=== PATIENT | female | born 1985 | race Caucasian/White ===

== ENCOUNTER 2024-07-03 16:34 | Emergency (ER) | payer OTHER ==
[~2024-07-03] VITALS: Ht 170.2 cm; Wt 70.0 kg
[2024-07-03 16:40] VITALS: O2SAT 98
[2024-07-03] MEDS ORDERED: ADENOSINE 3 MG/ML 2ML VIAL IV ONE (17:00)
[2024-07-03] MEDS: ADENOSINE 3 MG/ML 2ML VIAL IV ONE (17:23)
[2024-07-03 17:24] LABS: CHLORIDE 107 mEq/L (98-107); POTASSIUM 3.6 mEq/L (3.5-5.1); SODIUM 140 mEq/L (136-145)
[2024-07-03 17:25] LABS: CALCIUM 8.7 mg/dL (8.7-10.4); CARBON DIOXIDE 24 mEq/L (21-32)
[2024-07-03 17:30] LABS: CREATININE 0.8 mg/dL (0.6-1.0); GLUCOSE 175 mg/dL (70-105); UREA NITROGEN BLOOD 11 mg/dL (9-23)
[2024-07-03 17:31] LABS: TROPONIN I HIGH SENSITIVITY 6 ng/L (3.0-34)
[2024-07-03 17:32] LABS: BASOPHILS % 0.4 % (0.0-2.0); DIFFERENTIAL COMMENT 0; EOSINOPHILS % 3.6 % (0.0-5.0); HEMATOCRIT. 27.8 % (36.0-48.0); HEMOGLOBIN. 8.9 g/dL (12.0-16.0); LYMPHOCYTES % 27.2 % (20.0-50.0); MEAN CORPUSCULAR HEMOGLOBIN 25.3 pg (28.0-32.0); MEAN CORPUSCULAR HGB CONC 31.9 g/dL (31.0-37.0); MEAN CORPUSCULAR VOLUME 79.4 fL (81.0-99.0); MEAN PLATELET VOLUME 8.7 fl (7.4-10.4); MONOCYTES % 7.2 % (2.0-8.0); NEUTROPHILS % 61.6 % (40.0-76.0); PLATELET 227 x1000/uL (130-400); RED CELL DISTRIBUTION WIDTH 16.2 % (11.6-14.6); WHITE BLOOD COUNT 7.3 x1000/uL (4.5-11.0)
[2024-07-03 19:57] VITALS: BP 112/69; PULSE 84; RESP 12; TEMP 36.7; O2SAT 100
== END 2024-07-03 20:09 | disposition home or self-care (01) ==
LOC: ER 16:34
DX: I47.10 Supraventricular tachycardia, unspecified (principal); Z79.899 Other long term (current) drug therapy
CPT/HCPCS: 99291; 96374; 80048; 83735; 85025; 84484; 36415; 93005; J0153

== ENCOUNTER 2025-01-06 22:44 | Emergency (ER) | payer OTHER ==
[~2025-01-06] VITALS: Ht 162.6 cm; Wt 89.0 kg
[~2025-01-06 22:44] MED LIST: FERR325T6 MT
[2025-01-06 22:47] VITALS: O2SAT 100
[2025-01-06] MEDS: ADENOSINE 3 MG/ML 2ML VIAL IV ONE ×2 (23:00→23:07)
[2025-01-06 23:09] LABS: BASOPHILS % 1.1 % (0.0-2.0); EOSINOPHILS % 3.8 % (0.0-5.0); HEMATOCRIT. 25.6 % (36.0-48.0); HEMOGLOBIN. 8.3 g/dL (12.0-16.0); LYMPHOCYTES % 41.7 % (20.0-50.0); MEAN PLATELET VOLUME 8.5 fl (7.4-10.4); MONOCYTES % 7.8 % (2.0-8.0); NEUTROPHILS % 45.6 % (40.0-76.0); PLATELET 244 x1000/uL (130-400); RED BLOOD CELL COUNT 3.24 mill/uL (4.2-5.4); RED CELL DISTRIBUTION WIDTH 18.1 % (11.6-14.6)
[2025-01-06 23:19] LABS: HCG SCREEN NEGATIVE
[2025-01-06] MEDS: SODIUM CHLORIDE 0.9% 1,000 ML IV ONE (23:21)
[2025-01-06 23:25] LABS: CREATININE 0.7 mg/dL (0.6-1.0); UREA NITROGEN BLOOD 12 mg/dL (9-23)
[2025-01-06 23:26] LABS: ETHANOL BLOOD < 10 mg/dL (<10); TROPONIN I HIGH SENSITIVITY 4 ng/L (3.0-34)
[2025-01-06 23:27] LABS: ASPARTATE AMINOTRANSFERASE 22 IU/L (<34); BILIRUBIN DIRECT < 0.1 mg/dL (<=3.0)
[2025-01-06 23:28] LABS: BILIRUBIN TOTAL 0.3 mg/dL (0.1-1.0); PROTEIN TOTAL 6.9 g/dL (6.0-8.3)
[2025-01-06 23:41] LABS: CLARITY URINE CLEAR (CLEAR); COLOR URINE YELLOW (YELLOW); GLUCOSE URINE NEGATIVE (NEGATIVE); KETONES URINE NEGATIVE (NEGATIVE); LEUKOCYTE ESTERASE URINE 2+ (NEGATIVE); NITRITE URINE NEGATIVE (NEGATIVE); OCCULT BLOOD URINE NEGATIVE (NEGATIVE); PH URINE 6.5 (4.5-8.0); PROTEIN URINE NEGATIVE (NEGATIVE); SPECIFIC GRAVITY URINE 1.005 (1.005-1.030); UROBILINOGEN URINE 0.2 E.U./dL (0.2-1.0)
[2025-01-07 00:05] LABS: *AMPHETAMINES SCREEN URINE NEGATIVE (NEGATIVE); *BARBITURATES SCREEN URINE NEGATIVE (NEGATIVE); *BENZODIAZEPINES SCREEN URINE NEGATIVE (NEGATIVE); *COCAINE SCREEN URINE NEGATIVE (NEGATIVE); CANNABINOID URINE SCREEN NEGATIVE (NEGATIVE); ECSTASY MDMA SCREEN URINE NEGATIVE (NEGATIVE); METHADONE URINE SCREEN NEGATIVE (NEGATIVE); OPIATES URINE SCREEN NEGATIVE (NEGATIVE); PHENCYCLIDINE URINE SCREEN NEGATIVE (NEGATIVE)
[2025-01-07 02:46] LABS: TROPONIN I HIGH SENSITIVITY 15 ng/L (3.0-34)
[2025-01-07 03:07] LABS: SQUAMOUS EPITHELIAL CELL URINE FEW /lpf (RARE/1+)
[2025-01-07 03:08] LABS: RBC URINE 0-2 /hpf (0-2); WBC URINE 0-2 /hpf (0-2)
[2025-01-07 03:09] LABS: BACTERIA URINE TRACE
[2025-01-07 03:48] VITALS: BP 138/63; PULSE 76; RESP 13; TEMP 36.9; O2SAT 100
== END 2025-01-07 03:53 | disposition home or self-care (01) ==
LOC: ER 22:44
DX: I47.10 Supraventricular tachycardia, unspecified (principal); D64.9 Anemia, unspecified; Z86.79 Personal history of other diseases of the circulatory system
CPT/HCPCS: 80076; 80305; 80048; 81003; 80320; 84703; 83735; 85025; 84484 ×2; 36415 ×2; 71045; 93005; 96361; 96374; 99291; J0153; J7030; G0480

== ENCOUNTER 2025-04-03 09:33 | Inpatient (IN) | payer OTHER ==
[~2025-04-03] VITALS: Ht 170.2 cm; Wt 89.6 kg
[2025-04-03 09:38] VITALS: O2SAT 99
[2025-04-03] MEDS: ONDANSETRON HCL 4MG/2ML INJ IV ONE (10:11)
[2025-04-03] MEDS: LACTATED RINGERS 1,000 ML IV SCH (10:12)
[2025-04-03] MEDS: ACETAMINOPHEN 325MG TABLET PO ONE (10:13)
[2025-04-03 10:30] LABS: BASOPHILS % 0.4 % (0.0-2.0); EOSINOPHILS % 3.0 % (0.0-5.0); HEMATOCRIT. 31.3 % (36.0-48.0); HEMOGLOBIN. 9.4 g/dL (12.0-16.0); LYMPHOCYTES % 27.5 % (20.0-50.0); MEAN PLATELET VOLUME 9.0 fl (7.4-10.4); MONOCYTES % 3.7 % (2.0-8.0); NEUTROPHILS % 65.4 % (40.0-76.0); PLATELET 261 x1000/uL (130-400); RED BLOOD CELL COUNT 3.74 mill/uL (4.2-5.4); RED CELL DISTRIBUTION WIDTH 18.2 % (11.6-14.6)
[2025-04-03] MEDS: ADENOSINE 3 MG/ML 2ML VIAL IV ONE (10:33)
[2025-04-03 10:42] LABS: HCG SCREEN NEGATIVE
[2025-04-03 10:44] LABS: CREATININE 0.8 mg/dL (0.6-1.0)
[2025-04-03 10:45] LABS: PROTEIN TOTAL 7.1 g/dL (6.0-8.3); UREA NITROGEN BLOOD 7 mg/dL (9-23)
[2025-04-03 10:46] LABS: ASPARTATE AMINOTRANSFERASE 53 IU/L (<34); TROPONIN I HIGH SENSITIVITY 6 ng/L (3.0-34)
[2025-04-03 10:47] LABS: BILIRUBIN DIRECT 0.1 mg/dL (<=3.0); BILIRUBIN TOTAL 0.4 mg/dL (0.1-1.0)
[2025-04-03 14:20] LABS: TROPONIN I HIGH SENSITIVITY 117 ng/L (3.0-34)
[2025-04-03] MEDS: ASPIRIN 325MG TABLET PO ONE (16:32)
[2025-04-03] MEDS: ENOXAPARIN 80MG/0.8ML SYR SUBCUT ONE (16:33)
[2025-04-03 20:00] VITALS: BP 145/51; PULSE 82; RESP 16; TEMP 36.8; O2SAT 100
[2025-04-03] MEDS ORDERED: DEXTROSE 50% WATER 50ML SYRINGE IV PRN (20:30)
[2025-04-03] MEDS: INSULIN LISPRO 100 UNITS/ML SUBCUT SCH (21:00)
[2025-04-03] MEDS: METOPROLOL TARTRATE 50MG TABLET PO SCH (21:00)
[2025-04-03] MEDS: BLOOD SUGAR DIAGNOSTIC STRIP TEST SCH (21:00)
[2025-04-04] VITALS (8 sets, daily range): BP systolic 107–145; BP diastolic 41–75; PULSE 62–82; RESP 14–18; TEMP 36.3–36.8628; O2SAT 98–100
[2025-04-04] MEDS: ENOXAPARIN 30MG/0.3ML SYR SUBCUT SCH (09:00)
[2025-04-04] MEDS ORDERED: ENOXAPARIN 40MG/0.4ML SYR SUBCUT SCH (09:00)
[2025-04-04] MEDS ORDERED: METO-396 MT (13:39)
[2025-04-04] MEDS: ENOXAPARIN 100MG/ML SYR SUBCUT NR (14:00)
[2025-04-04] MEDS: ASPIRIN 81MG TABLET PO SCH (15:20)
[2025-04-04] MEDS ORDERED: REGADENOSON 0.4 MG/5 ML IV NR (16:15)
[2025-04-04] MEDS: DIGOXIN 125MCG TABLET PO SCH (19:03)
[2025-04-05 04:00] VITALS: BP 116/34; PULSE 66; RESP 18; TEMP 36.2; O2SAT 97
[2025-04-05] MEDS: ENOXAPARIN 100MG/ML SYR SUBCUT SCH (06:00)
[2025-04-05 07:56] LABS: CREATININE 0.6 mg/dL (0.6-1.0); UREA NITROGEN BLOOD 9 mg/dL (9-23)
[2025-04-05 08:00] VITALS: BP 120/99; PULSE 71; RESP 16; TEMP 36.9; O2SAT 97
[2025-04-05 08:11] LABS: PLATELET 236 x1000/uL (130-400); RED BLOOD CELL COUNT 3.64 mill/uL (4.2-5.4); RED CELL DISTRIBUTION WIDTH 17.7 % (11.6-14.6)
[2025-04-05] MEDS ORDERED: REGADENOSON 0.4 MG/5 ML IV ONE (08:12)
[2025-04-05 12:00] VITALS: BP 113/68; PULSE 71; RESP 16; TEMP 36.6; O2SAT 97
[2025-04-05 12:10] VITALS: BP 120/99; PULSE 71; RESP 16; TEMP 98.4
== END 2025-04-05 13:45 | disposition home or self-care (01) | DRG 190 ==
LOC: ER 09:33 → EDBEDREQTM 15:25 → EDBEDREQ 15:25 → 6WST 18:38
PROVIDERS: ADMIT Internal Medicine; ATTEND Internal Medicine
DX: I21.4 Non-ST elevation (NSTEMI) myocardial infarction (principal); I47.10 Supraventricular tachycardia, unspecified; D64.9 Anemia, unspecified; E66.9 Obesity, unspecified; Z68.30 Body mass index [BMI] 30.0-30.9, adult
CPT/HCPCS: 36415; 71045; 78452; 80048; 80076; 80162; 82962; 83036; 84484; 84703; 85025; 85027; 93005; 93017; 96361; 96374; 99291; A4606; A9500; J0153; J1650; J2405; J2785